=== PATIENT | male | born 1995 | race Caucasian/White ===

== ENCOUNTER 2017-07-22 14:09 | Emergency (ER) | payer OTHER, BC, SELFPAY ==
[2017-07-22 14:09] VITALS: BP 163/103; PULSE 91; RESP 16; TEMP 37.1; O2SAT 99; BMI 30.8
--- NOTE | 2017-07-22 14:19 | RAD_ITS ---
STUDY: X-RAY - ACUTE ABDOMINAL SERIES REASON FOR EXAM: Male, 21 years old. Abdominal pain. TECHNIQUE: Single view of the chest. Supine, and erect view(s) of the abdomen were obtained. COMPARISON: None. FINDINGS: The lungs are clear and expanded. Normal size heart. Normal mediastinum and heather. Normal visualized pulmonary arteries. Normal visualized aortic arch and descending thoracic aorta. There is a moderate amount of colonic fecal material. The soft tissue structures of the abdomen and pelvis are unremarkable. Normal visualized osseous structures. RAD/Acute Abdomen Inc Chest IMPRESSION: A moderate amount of fecal material is seen in the colon. Electronically Signed: Ryan Alvares MD at 14:52 EST Tel [phone], Service support ,
[2017-07-22] MEDS: Ondansetron 4 MG/2 ML Vial IV (14:34)
[2017-07-22] MEDS: Dicyclomine 10 MG Capsule 20 MG PO (14:34)
[2017-07-22 14:39] LABS: Absolute Lymphocyte Count 1.77 X10^3/ul (0.83-4.51); Absolute Neutrophil Count 2.1 X10^3/uL (2.0-7.7); Basophil# 0.01 X10^3/uL; Basophil% 0.2 % (0-1); Eosinophil# 0.06 X10^3/uL; Eosinophils% 1.4 % (0-5); Hematocrit 44.2 % (40-54); Hemoglobin 14.8 g/dl (13.0-16.5); Lymphocyte # 1.77 X10^3/ul (4.0); Lymphocyte % 41.3 % (19-41); Mean Corp Hgb Conc 33.5 g/gl (32-36); Mean Corpuscular Hgb 30.3 pg (27.0-32.0); Mean Corpuscular Volume 90.4 fL (80-94); Mean Platelet Vol. 9.7 fl (6.2-12.0); Monocyte# 0.31 X10^3/uL; Monocyte% 7.2 % (0-10); Neutrophil # 2.14 X10^3/uL (2.7-7.7); Neutrophil % 49.9 % (47-70); Platelet Count 205 K/mm3 (150-450); RBC Distribution Width CV 12.6 % (11.6-14.6); RBC Distribution Width SD 41.5 fl (35.1-43.9); Red Blood Count 4.89 M/mm3 (4.6-6.2); White Blood Count 4.3 K/mm3 (4.4-11.0)
--- NOTE | 2017-07-22 14:41 | ED.VISSUMM ---
- ER Visit Summary Date of Service: 07/22/17 Chief Complaint: Abdominal pain History of Present Illness: The patient is a 21 M who has had 2 days of abdominal pain. He describes cramping diffusely but worse in the left upper quadrant. He has had some nausea with vomiting. No diarrhea. He denies any urinary symptoms. He had darker stools today, but he does admit to using Pepto-Bismol to help with the symptoms. No fevers. No history of abdominal surgeries. He has a history of a provoked PE that was caused by a femur fracture and immobility. He is not on any blood thinners at this time Physical Examination: Vital signs reviewed. HEENT exam unremarkable. Heart is regular rate and rhythm without murmurs. Lungs are clear to auscultation. Abdomen is soft with tenderness in the left upper quadrant. Extremities reveal no edema. Skin exam normal. Neurologic exam normal. Test Results: Laboratory studies are normal. Acute abdominal series reveals moderate fecal load Emergency Department Course and Treatment: Patient is likely having a gastroenteritis. I gave him Bentyl and Zofran and he feels better. He will go home with the same. Follow-up with PCP Treatment Plan: [] Disposition: Discharge Impression: Gastroenteritis This note was generated with [employer] dictation software. It may contain incorrect words, spelling, and punctuation that were not noted in review of the chart prior to signing ED Disposition - Plan for ED Patient: Chief Complaint: Abd Pain [facility] [Primary Care Provider] -
[2017-07-22 14:42] LABS: POSITIVE COUNT NO; POSITIVE DIFFERENTIAL NO; POSITIVE MORPHOLOGY NO
[2017-07-22 14:55] LABS: ALB/GLOB Ratio 1.1 RATIO (0.9-2.4); AST(SGOT) 14 U/L (15-37); Alanine Aminotransfer ALT/SGPT 24 U/L (16-61); Albumin, Serum 3.8 g/dL (3.2-5.0); Alkaline Phosphatase 65 U/L (45-117); Anion Gap 7 (5-15); BUN 11 mg/dL (7-18); BUN/Creat Ratio 11.1 RATIO (10-20); Calcium,Total 8.8 mg/dL (8.5-10.1); Chloride 109 mmol/L (98-107); Creatinine, Serum 0.99 mg/dL (0.70-1.30); EST Glomerular Filtration Rate 99 mL/min (>60); Est Glom Filt Rate - Afr Amer 120 mL/min (>60); Estimated Creatinine Clearance 127.37 ml/min; Globulin 3.6 g/dL (2.2-4.2); Glucose 95 mg/dL (74-106); Lipase 92 U/L (73-393); Potassium 4.1 mmol/L (3.5-5.1); Protein, Total 7.4 g/dL (6.4-8.2); Sodium Level 143 mmol/L (136-145)
--- NOTE | 2017-07-22 15:02 | ED.DEP ---
ED Disposition - Plan for ED Patient: Disposition: Home or Assisted Living Chief Complaint: Abd Pain Instructions: ED Abdominal Pain Unkn Cause Male Prescriptions: Ondansetron [Zofran Odt] 4 mg PO Q8H PRN PRN #10 tab PRN Reason: Nausea Dicyclomine HCl [Bentyl] 20 mg PO TIDAC #20 cap [facility] [Primary Care Provider] -
[2017-07-22 15:08] VITALS: BP 150/78; PULSE 89; RESP 14; O2SAT 99
== END 2017-07-22 15:10 | disposition home or self-care (01) ==
PROVIDERS: Emergency Provider Emergency Medicine
DX: K52.9 Noninfective gastroenteritis and colitis, unspecified (principal); Z86.711 Personal history of pulmonary embolism
CPT/HCPCS: 74022; 80053; 83690; 85025; 96374; 99283; A4216; J2405

== ENCOUNTER 2018-06-11 02:49 | Emergency (ER) | payer BC, SELFPAY ==
[2018-06-11 02:50] VITALS: BP 191/99; PULSE 118; RESP 20; TEMP 36.6; O2SAT 99; BMI 32.5
--- NOTE | 2018-06-11 02:55 | ED.RN ---
CALLED FOR EKG PER RN REQUEST, PULLED OLD EKGS FOR
--- NOTE | 2018-06-11 03:20 | EKG12_ITS ---
Test Reason : CP Blood Pressure : / mmHG Vent. Rate : 110 BPM Atrial Rate : 110 BPM P-R Int : 140 ms QRS Dur : 106 ms QT Int : 344 ms P-R-T Axes : 045 060 033 degrees QTc Int : 465 ms Sinus tachycardia with occasional Premature ventricular complexes and Fusion complexes Otherwise normal ECG Confirmed by MOMO CORRALES, BRAYDEN ([id number]), production editor HOMERO ORELLANA ([id number]) on 06/13/2018 2:34:48 PM Referred By: CRISTIANA Confirmed By:BRAYDEN BARR MD
[2018-06-11 03:38] LABS: Absolute Lymphocyte Count 3.89 X10^3/ul (0.83-4.51); Absolute Neutrophil Count 3.9 X10^3/uL (2.0-7.7); Basophil# 0.02 X10^3/uL; Basophil% 0.2 % (0-1); Eosinophil# 0.16 X10^3/uL; Eosinophils% 1.8 % (0-5); Hematocrit 43.8 % (40-54); Hemoglobin 15.2 g/dl (13.0-16.5); Lymphocyte # 3.89 X10^3/ul (4.0); Lymphocyte % 44.4 % (19-41); Mean Corp Hgb Conc 34.7 g/gl (32-36); Mean Corpuscular Hgb 30.6 pg (27.0-32.0); Mean Corpuscular Volume 88.3 fL (80-94); Mean Platelet Vol. 10.1 fl (6.2-12.0); Monocyte# 0.73 X10^3/uL; Monocyte% 8.3 % (0-10); Neutrophil # 3.94 X10^3/uL (2.7-7.7); Neutrophil % 45.1 % (47-70); Platelet Count 262 K/mm3 (150-450); RBC Distribution Width CV 12.3 % (11.6-14.6); RBC Distribution Width SD 39.3 fl (35.1-43.9); Red Blood Count 4.96 M/mm3 (4.6-6.2); White Blood Count 8.8 K/mm3 (4.4-11.0)
[2018-06-11] MEDS: 0.9% Normal Saline 1,000 ML 1000 ML IV (03:39)
[2018-06-11 03:41] LABS: POSITIVE COUNT NO; POSITIVE DIFFERENTIAL NO; POSITIVE MORPHOLOGY NO
[2018-06-11 03:43] LABS: D-Dimer Quantitative (DVT/PE) 0.43 FEU/ug/m (0.27-0.49)
--- NOTE | 2018-06-11 03:50 | RAD_ITS ---
STUDY: X-RAY CHEST REASON FOR EXAM: Male, 22 years old. CHEST PRESSURE AND HEART PALPITATIONS THIS AM. HX PE TECHNIQUE: Single AP portable view of the chest. COMPARISON: None. FINDINGS: The lungs are clear and expanded. There is no demonstrated pleural abnormality. Normal size heart. Normal mediastinum and heather. Normal visualized pulmonary arteries. Normal visualized aortic arch and descending thoracic aorta. Normal visualized thoracic spine. Normal visualized ribs, clavicles, and shoulders. There is no demonstrated abnormality of the visualized soft tissue structures of the upper abdomen. RAD/Chest 1 View (Portable) IMPRESSION: Normal x-ray examination of the chest. Electronically Signed: Radha Lopez MD at 4:52 EST Tel , Service support ,
[2018-06-11 03:51] VITALS: BP 137/90; PULSE 80; RESP 20; O2SAT 97
[2018-06-11 03:54] LABS: Anion Gap 11 (5-15); BUN 18 mg/dL (7-18); BUN/Creat Ratio 16.7 RATIO (10-20); Calcium,Total 8.8 mg/dL (8.5-10.1); Chloride 105 mmol/L (98-107); Creatinine, Serum 1.08 mg/dL (0.70-1.30); EST Glomerular Filtration Rate 89 mL/min (>60); Est Glom Filt Rate - Afr Amer 107 mL/min (>60); Estimated Creatinine Clearance 115.76 ml/min; Glucose 135 mg/dL (74-106); Potassium 3.3 mmol/L (3.5-5.1); Sodium Level 142 mmol/L (136-145); Thyroid Stim Hormone (TSH) 4.94 uIU/mL (0.358-3.74)
[2018-06-11 04:00] LABS: Vista UDS pH Range 6
--- NOTE | 2018-06-11 04:12 | ED.VISSUMM ---
- ER Visit Summary Date of Service: 06/11/18 Chief Complaint: Palpitations History of Present Illness: The patient is a 22 M who goes to the [facility]. Patient reports that he works at [employer]. Approximately 1030 they brought in a inmate who had meth all over him. The patient padded him down and did not think much of it. States that he got off work an hour later. He went and worked out and did not have any problems. States that he went home and approximately 2 hours after this he laid down to rest and felt very anxious. He was having palpitations that he describes as a heartbeat followed by a skipped beat. Reports that he has chest tightness that began the same time. States this was 4 out of 10 at worst and 1 out of 10 currently. Is worsened by nothing including exertion. Is relieved by nothing. Reports that he has been nauseated. No vomiting. No diaphoresis or shortness of breath. Reports his lightheadedness worsens when he stands. He has not had a syncopal episode. Physical Examination: Vitals: 97.9, 199/99, 118, 20, 99% on room air which is not hypoxic. General: Well-nourished and well-developed. Head: Normocephalic atraumatic. Neck: Supple, no lymphadenopathy. No JVD. Nontender. Cardiovascular: Tachycardic regular rhythm. No murmurs. Respiratory: No respiratory distress. Clear to auscultation bilaterally. Abdominal: Soft, nontender, nondistended, normal bowel sounds. No guarding, rebound, or peritoneal signs. Back: Nontender. Extremities: Nontender, no edema. Skin: Normal color, no rash. Neurologic: Alert and oriented ?3. Cranial nerves II through XII are intact. Normal strength and sensation. Psych: Normal affect. Test Results: EKG is sinus tach at 110 with 4 PVCs. The only change since August 2016 is the rate in the PVCs. His rate then was 78. CBC is more for 7 neutrophils of 45 lymphocytes 44. Chem-7 is more for potassium 3.3 and glucose 135. Troponin is negative. D-dimer is negative. TSH is 4.94. Chest x-ray is normal. Tox screen is negative. Emergency Department Course and Treatment: Patient had an IV placed. He was given a liter normal saline. Initially on the monitor he was having frequent PVCs. These have resolved. His rate is now sinus in the 70s. He reports that his symptoms have completely resolved. Treatment Plan: Patient will be discharged instructions follow-up his primary care physician in 1-2 days if not improving. Return to the emergency department for any worsening symptoms. Disposition: To home in improved and stable condition. Impression: 1. PVCs. This note was generated with [employer] dictation software. It may contain incorrect words, spelling, and punctuation that were not noted in review of the chart prior to signing ED Disposition - Plan for ED Patient: Chief Complaint: Palpitations Instructions: Premature Ventricular Contractions [facility] [[facility]] - 1-2 Days if not improving
[2018-06-11 04:26] LABS: Amphetamine Urine VISTA NEGATIVE (<1000 ng/mL); Barbiturate Urine VISTA NEGATIVE (< 200 ng/mL); Benzodiazepine Urine VISTA NEGATIVE (< 200 ng/mL); Cocaine Urine VISTA NEGATIVE (< 300 ng/mL); Ecstacy Urine VISTA NEGATIVE (< 500 ng/mL); Methadone Urine VISTA NEGATIVE (< 300 ng/mL); PCP Urine VISTA NEGATIVE (< 25 ng/mL); THC Urine VISTA NEGATIVE (< 50 ng/mL)
[2018-06-11 04:41] VITALS: BP 135/61; PULSE 74; RESP 16; O2SAT 98
== END 2018-06-11 04:42 | disposition home or self-care (01) ==
PROVIDERS: Emergency Provider Emergency Medicine
DX: I49.3 Ventricular premature depolarization (principal); R07.89 Other chest pain; R11.0 Nausea; Z86.711 Personal history of pulmonary embolism; Z79.899 Other long term (current) drug therapy
CPT/HCPCS: 71045; 80048; 80307; 84443; 84484; 85025; 85379; 93005; 96360; 99284; J7030; A4216

== ENCOUNTER 2019-11-15 05:20 | Emergency (ER) | payer BC, OTHER, SELFPAY ==
[2019-11-15 05:21] VITALS: BP 186/109; PULSE 80; RESP 18; TEMP 36.7; O2SAT 99; BMI 29.2
[2019-11-15 05:29] VITALS: BP 172/105
--- NOTE | 2019-11-15 05:32 | EKG12_ITS ---
Test Reason : CP Blood Pressure : / mmHG Vent. Rate : 072 BPM Atrial Rate : 072 BPM P-R Int : 140 ms QRS Dur : 102 ms QT Int : 380 ms P-R-T Axes : 033 064 047 degrees QTc Int : 416 ms Normal sinus rhythm Normal ECG Confirmed by TIN CHATMAN MD ([id number]), assignment editor HOMERO ORELLANA ([id number]) on 11/17/2019 10:13:43 AM Referred By: BB Confirmed By:TIN CHATMAN MD
[2019-11-15 06:16] LABS: Absolute Lymphocyte Count 2.51 X10^3/uL (0.83-4.51); Absolute Neutrophil Count 2.8 X10^3/uL (2.0-7.7); Basophil# 0.02 X10^3/uL; Basophil% 0.3 % (0-1); Eosinophil# 0.12 X10^3/uL; Hematocrit 41.7 % (40-54); Hemoglobin 13.7 g/dL (13.0-16.5); Lymphocyte # 2.51 X10^3/ul (4.0); Mean Corp Hgb Conc 32.9 g/dL (32-36); Mean Corpuscular Volume 91.2 fL (80-94); Mean Platelet Vol. 10.1 fl (6.2-12.0); Monocyte# 0.54 X10^3/uL; NRBC Flagged by Analyzer 0 % (0-5); Neutrophil # 2.76 X10^3/uL (2.7-7.7); Neutrophil % 46.4 % (47-70); Platelet Count 257 K/mm3 (150-450); RBC Distribution Width CV 11.9 % (11.6-14.6); RBC Distribution Width SD 39.4 fl (35.1-43.9); Red Blood Count 4.57 M/mm3 (4.6-6.2)
--- NOTE | 2019-11-15 06:29 | ED.VIS.CHEST ---
History of Present Illness Chief Complaint: Chest Pain Informant: Patient Onset: Yesterday Activity at onset: Rest Timing: Intermittent Quality: Tightness Location: Substernal Current Severity: Mild Maximum Severity: Moderate Worsened By: Nothing. Not Worsened By: Exertion, Movement of Arm, Eating, Palpation, Breathing, Coughing Relieved By: Nothing Associated Symptoms: Palpitations. Negative for: Nausea, Vomiting, Diaphoresis, Dyspnea, Cough, Fever, Lightheadedness Narrative: Patient is a who gets most of his care through the [place], states that he has been diagnosed with PVCs before and has felt them. Today he had episodes off and on throughout much of the day, the last of which was at work, of racing heartbeat, and then developing chest tightness, and in the midst of all of this occasionally also feeling skips like he had with prior PVCs. He had no syncope or near syncope. No dyspnea, recent travel, leg pain or swelling, no history of DVT or PE. He takes no cardiac prescriptions, just for depression. He has not seen cardiology for any of this. He admits he does drink more caffeine than he probably should, he does no illicit drugs or other stimulants. Prior Similar Symptoms: Yes - with PVCs Recent Illness/Hospitalization: No - Past Medical History (1) Anxiety and depression Status: Chronic Past Medical History - Allergies and Home Meds Allergies/Adverse Reactions: Allergies No Known Allergies Allergy (Verified 11/15/19 05:31) Primary Care Physician: [facility],[place] [Primary Care Provider] - Lives: Spouse/ Significant Other Smoking Status: Former smoker Drugs: None Review of Systems General: Denies: Chills, Fever, Sweats Eyes: Denies: Visual changes - bilaterally, Diplopia ENT: Denies: Rhinorrhea, Sore throat Cardiovascular: Reports: Chest pain, Palpitations, Heart racing Respiratory: Denies: Dyspnea, Cough, Dyspnea on exertion Gastrointestinal: Denies: Abdominal pain, Nausea, Vomiting, Diarrhea, Melena, Hematochezia Genitourinary: Denies: Dysuria, Hematuria, Frequency Musculoskeletal: Denies: Back pain, Swelling, Extremity Pain Skin: Denies: Rash, Wounds Neurological: Denies: Headache, Weakness, Numbness Physical Exam Vital Signs/Narrative: Vital Signs Temp Pulse Resp BP Pulse Ox 11/15/19 05:29 172/105 H 11/15/19 05:21 98.1 F 80 18 186/109 H 99 Inital Vital Signs reviewed: Yes General: Well nourished, Well developed, No Acute Distress - well-appearing, nad Head: Normocephalic, Atraumatic Eyes: Perrl, EOMI ENT: Moist mucous membranes, No rhinorrhea Neck: Supple, Nontender Cardiovascular: Regular rate, Regular rhythm, No murmurs. Negative for: Tachycardia Respiratory: No distress, CTA bilaterally, Chest nontender Abdomen: Soft, Nontender, Nondistended, Normal bowel sounds Back: Nontender, Normal Inspection Extremities: Nontender, No edema. Negative for: Calf Tenderness Skin: Normal color, No rash Neurological: Alert, Oriented x3, Cranial nerves II-XII grossly intact, Normal Strength, Normal Sensation, Normal Gait Psychological: Normal affect, Normal Mood Diagnostic/Tx/Re-eval Laboratory Results 11/15/19 11/15/19 05:30 05:30 WBC 6.0 RBC 4.57 L Hgb 13.7 Hct 41.7 MCV 91.2 MCH 30.0 MCHC 32.9 RDW Std Deviation 39.4 RDW Coeff of Rios 11.9 Plt Count 257 MPV 10.1 Immature Gran % (Auto) 0.300 Neut % (Auto) 46.4 L Lymph % (Auto) 42.0 H Dougherty % (Auto) 9.0 Eos % (Auto) 2.0 Baso % (Auto) 0.3 Absolute Neuts (auto) 2.8 Absolute Lymphs (auto) 2.51 Nucleated RBC % 0 Sodium 140 Potassium 3.9 Chloride 105 Carbon Dioxide 29.0 Anion Gap 6 BUN 15 Creatinine 0.97 Estim Creat Clear Calc 126.67 Est GFR (MDRD) Af Amer 120 Est GFR (MDRD) Non-Af 100 BUN/Creatinine Ratio 15.5 Glucose 96 Calcium 9.3 Troponin I < 0.015 - Rhythm Strip Rhythm Strip: Sinus Rhythm Rate: 72 Ectopy: None - EKG Initial EKG Interpretation: Sinus Rhythm, No Acute Injury Pattern - normal EKG - Medical Decision Making Patient felt well with no chest pain here in the emergency department. He did have a couple of PVCs that were seen on the monitor but they were infrequent. He had no dysrhythmias and his EKG is normal along with a negative troponin. His blood pressure gradually came down to the 140 range without treatment. I suspect his episode of hypertension may have been related to hormone/epinephrine surge from the symptoms. He has never seen a drug abuse counselor and is amenable to referral. He was given information for follow-up, and placed on Toprol-XL low dose which he is willing to try and has not before. ED Disposition - Plan for ED Patient: Disposition: Home or Assisted Living Diagnosis: Palpitations, Intermittent chest pain, PVCs (premature ventricular contractions) Instructions: ED Palpitations Prescriptions: Metoprolol Succinate [Toprol Xl] 25 mg PO DAILY #30 tab.er.24h Transmission Status: Pending to [facility] Referrals: [facility],[place] [Primary Care Provider] - Jarocho Sung MD [STAFF PHYSICIAN] - (or other available drug abuse counselor; call for appt)
[2019-11-15 06:40] LABS: Anion Gap 6 (5-15); BUN 15 mg/dL (7-18); BUN/Creat Ratio 15.5 RATIO (10-20); Calcium,Total 9.3 mg/dL (8.5-10.1); Chloride 105 mmol/L (98-107); Creatinine, Serum 0.97 mg/dL (0.70-1.30); EST Glomerular Filtration Rate 100 mL/min (>60); Est Glom Filt Rate - Afr Amer 120 mL/min (>60); Estimated Creatinine Clearance 126.67 ml/min; Glucose 96 mg/dL (74-106); Potassium 3.9 mmol/L (3.5-5.1); Sodium Level 140 mmol/L (136-145)
[2019-11-15 07:03] VITALS: BP 154/100; PULSE 65; RESP 21; O2SAT 96
== END 2019-11-15 07:05 | disposition home or self-care (01) ==
PROVIDERS: Emergency Provider Emergency Medicine
DX: R00.2 Palpitations (principal); R07.89 Other chest pain; I49.3 Ventricular premature depolarization; F32.9 Major depressive disorder, single episode, unspecified; F41.9 Anxiety disorder, unspecified; Z79.899 Other long term (current) drug therapy; Z87.891 Personal history of nicotine dependence
CPT/HCPCS: 80048; 84484; 85025; 93005; 99284; A4216

== ENCOUNTER → 2020-01-07 09:07 | Outpatient (CLI) | payer BC, OTHER, SELFPAY ==
[2019-12-25 14:32] VITALS: BMI 28.3
--- NOTE | 2020-01-07 09:07 | ECHOD_ITS ---
Reason For Study: HTN Procedure This was a 2D Doppler, Color Flow transthoracic echocardiogram. Exam performed in department. Left Ventricle Normal LV size. Left ventricular systolic function is normal. The estimated ejection fraction is 60 %. Normal diastology for age. No regional wall motion abnormalities noted. Right Ventricle Normal RV size. Normal systolic function. Atria Normal left atrium. Normal right atrium. Mitral Valve Normal mitral valve. Trivial eccentric mitral valve insufficiency. Tricuspid Valve Normal tricuspid valve. Mild tricuspid valve insufficiency. Pulmonary artery systolic pressure is 30 mmHg. Aortic Valve Normal aortic valve. Trisinus/trileaflet aortic valve. Pulmonic Valve Normal pulmonic valve. Great Vessels Normal aortic root. The pulmonary artery is normal size. Normal inferior vena cava. Pericardium/Pleural No pericardial effusion. MMode/2D Measurements & Calculations LVIDd: 5.3 cm IVSd: 0.93 cm Ao root diam: 3.0 cm LVIDs: 3.5 cm LVPWd: 0.79 cm RVDd: 3.4 cm FS: 33.4 % LAV(MOD-bp): 61.5 ml LA A4 area: 20.3 cm2 LA dimension(2D): 4.0 cm LAV(MOD-bp) Indexed: 28.9 ml/m2 LAV(MOD-sp2): 64.1 ml LAV(MOD-sp4): 53.3 ml RA A4 area: 16.2 cm2 Time Measurements MV dec time: 0.24 sec Doppler Measurements & Calculations MV E max pedro: 80.5 cm/sec Lat Peak E' Pedro: 12.5 cm/sec Med Peak E' Pedro: 10.2 cm/sec MV A max pedro: 47.3 cm/sec E/E' lat: 6.4 E/E' med: 7.9 MV E/A: 1.7 Ao V2 max: 120.5 cm/sec LV V1 max: 99.6 cm/sec PA V2 max: 80.1 cm/sec Ao max P.8 mmHg LV V1 max P.0 mmHg TR max pedro: 259.9 cm/sec TR max P.0 mmHg Interpretation Summary Normal LV size. Left ventricular systolic function is normal. The estimated ejection fraction is 60 %. Trivial eccentric mitral valve insufficiency. Pulmonary artery systolic pressure is 30 mmHg. Normal diastology for age. Ordering Physician: Jarocho Sung Referring Physician: [facility] Performed By: Shari Garcia RVT, RDCS and Student
--- NOTE | 2020-01-07 17:00 | STRESSREP ---
Stress Test Report Exercise stress test. 24-year-old man with a history of hypertension. Stress protocol: Resting EKG demonstrates normal sinus rhythm with a rate of 61 bpm normal intervals are noted resting blood pressure is 128/78 mmHg. Patient exercised according to regular Sergio protocol for total duration of 13 minutes and 30 seconds. The maximum heart rate attained was 166 bpm which was 85% of maximum predicted heart rate the maximum workload was 16.2 metabolic equivalents. Patient maintained sinus rhythm throughout the recording. At rest there were no ST or T wave changes noted suggest ischemia peak exercise upsloping ST changes were noted with no meet the criteria for ischemia. The resting blood pressure was 128/78 peak blood pressure was 150/70 mmHg. The test was terminated due to leg fatigue. Conclusion: Exercise stress test with no EKG criteria for ischemia at a high workload. Good functional capacity. Good blood pressure response to exercise.
[2020-01-12 12:07] LABS: Dopamine, Pl <30 pg/mL (0-48); Epinephrine, Pl 29 pg/mL (0-62); Norepinephrine, Pl 131 pg/mL (0-874)
[2020-08-25 12:51] LABS: Renin, Plasma 1.011 ng/mL/hr (0.167-5.380)
== END ==
PROVIDERS: Referring Provider Internal Medicine Cardiovascular Disease; Visit Provider Internal Medicine Cardiovascular Disease
DX: R03.0 Elevated blood-pressure reading, without diagnosis of hypertension (principal); R07.9 Chest pain, unspecified
CPT/HCPCS: 36415; 82384; 84244; 93017; 93306